=== PATIENT | male | born 1940 | race Caucasian/White ===

== ENCOUNTER 2019-03-25 08:06 | Emergency (ER) | payer MEDICARE, BC ==
[~2019-03-25] VITALS: Ht 175.3 cm; Wt 100.0 kg
[~2019-03-25 08:06] MED LIST: ASPI81TA52 PO; ATOR10TA87 PO; DOCU-28 PO; FAMO-128 PO; HYDR-4383 PO; WALKERFR
[2019-03-25] MEDS ORDERED: HYDROcodone/acetaminophen 5mg/325mg tablet PO ONE (08:25)
[2019-03-25 08:52] LABS: BASOPHILS % (AUTO) 0.5 % (0-1); EOSINOPHILS # (AUTO) 0.1 X10'3 (0-0.9); EOSINOPHILS % (AUTO) 1.1 % (0-6); HEMOGLOBIN 15.2 g/dl (14.0-17.9); LYMPHOCYTES # (AUTO) 0.7 X10'3 (1.1-4.8); LYMPHOCYTES % (AUTO) 10.4 % (21-51); MEAN CORPUSCULAR HEMOGLOBIN 33.9 PG (27.0-31.0); MEAN CORPUSCULAR HGB CONC 34.5 g/dL (33.0-36.5); MEAN CORPUSCULAR VOLUME 98.5 FL (78-98); MONOCYTES # (AUTO) 0.5 X10'3 (0-0.9); MONOCYTES % (AUTO) 8.1 % (2-12); NEUTROPHILS # (AUTO) 5.1 X10'3 (1.8-7.7); NEUTROPHILS % (AUTO) 79.9 % (42-75); PLATELET COUNT 178 X10'3 (140-440); RED BLOOD COUNT 4.47 X10'6 (4.70-6.10); RED CELL DISTRIBUTION WIDTH 13.2 % (11.5-14.5); WHITE BLOOD COUNT 6.4 X10'3 (4.5-11.0)
[2019-03-25 09:14] LABS: PARTIAL THROMBOPLASTIN TIME 27 SECONDS (22-32)
[2019-03-25 09:20] LABS: ALANINE AMINOTRANSFERASE 24 U/L (12-78); ALBUMIN 3.6 G/DL (3.4-5.0); ALKALINE PHOSPHATASE 67 IU/L (46-116); ANION GAP 7 (8-16); ASPARTATE AMINO TRANSFERASE 19 U/L (10-37); BILIRUBIN,TOTAL 0.7 MG/DL (0.1-1.0); BLOOD UREA NITROGEN 15 MG/DL (7-18); BUN/CREATININE RATIO 14.9 (5.4-32.0); CALCIUM 8.7 MG/DL (8.5-10.1); CHLORIDE 99 MMOL/L (99-107); CREATININE 1.01 MG/DL (0.60-1.10); GLUCOSE 118 MG/DL (70-104); SODIUM 134 MMOL/L (135-145); TOTAL PROTEIN 7.2 G/DL (6.4-8.2); eGFR 72 ML/MIN
[2019-03-25 10:22] VITALS: BP 145/60
== END 2019-03-25 10:24 | disposition home or self-care (01) ==
LOC: ER 08:06
DX: S60.512A Abrasion of left hand, initial encounter (principal); S90.811A Abrasion, right foot, initial encounter; S90.812A Abrasion, left foot, initial encounter; R55 Syncope and collapse; M25.552 Pain in left hip; M25.562 Pain in left knee; I25.10 Atherosclerotic heart disease of native coronary artery without angina pectoris; E78.00 Pure hypercholesterolemia, unspecified; Z95.1 Presence of aortocoronary bypass graft; Z79.82 Long term (current) use of aspirin; Z79.899 Other long term (current) drug therapy; V82 Occupant of powered streetcar injured in transport accident; Y93.89 Activity, other specified; Y92.413 State road as the place of occurrence of the external cause; Y99.9 Unspecified external cause status
CPT/HCPCS: 36415; 71045; 73610; 73630; 80053; 84484; 85025; 85610; 85730; 93005; 99284

== ENCOUNTER 2021-03-24 09:09 | Emergency (ER) | payer BC, SELFPAY ==
[~2021-03-24] VITALS: Ht 175.3 cm; Wt 90.9 kg
[2021-03-24 10:34] LABS: MONOCYTES # (AUTO) 1.2 X10'3 (0-0.9)
[2021-03-24 10:40] LABS: BASOPHILS % (AUTO) 0.2 % (0-1); EOSINOPHILS % (AUTO) 0 % (0-6); HEMOGLOBIN 16.7 g/dl (14.0-17.9); LYMPHOCYTES # (AUTO) 0.5 X10'3 (1.1-4.8); LYMPHOCYTES % (AUTO) 6.8 % (21-51); MEAN CORPUSCULAR HEMOGLOBIN 33.2 PG (27.0-31.0); MEAN CORPUSCULAR HGB CONC 34.7 g/dL (33.0-36.5); MEAN CORPUSCULAR VOLUME 95.7 FL (78-98); MEAN PLATELET VOLUME 7.1 FL (7.4-10.4); MONOCYTES % (AUTO) 15.3 % (2-12); NEUTROPHILS # (AUTO) 6.1 X10'3 (1.8-7.7); NEUTROPHILS % (AUTO) 77.7 % (42-75); PLATELET COUNT 200 X10'3 (140-440); RED BLOOD COUNT 5.01 X10'6 (4.70-6.10); RED CELL DISTRIBUTION WIDTH 13.3 % (11.5-14.5); WHITE BLOOD COUNT 7.9 X10'3 (4.5-11.0)
[2021-03-24 10:51] LABS: ALANINE AMINOTRANSFERASE 21 U/L (12-78); ALBUMIN 3.4 G/DL (3.4-5.0); ALBUMIN/GLOBULIN RATIO 0.8 (1.1-1.5); ALKALINE PHOSPHATASE 68 IU/L (46-116); ANION GAP 8 (8-16); ASPARTATE AMINO TRANSFERASE 22 U/L (10-37); BILIRUBIN,TOTAL 0.8 MG/DL (0.1-1.0); BLOOD UREA NITROGEN 24 MG/DL (7-18); CALCIUM 8.7 MG/DL (8.5-10.1); CHLORIDE 95 MMOL/L (99-107); GLUCOSE 116 MG/DL (70-104); LIPASE < 50 U/L (73-393); SODIUM 132 MMOL/L (135-145); TOTAL CARBON DIOXIDE 28.7 MMOL/L (24-32); TOTAL PROTEIN 7.5 G/DL (6.4-8.2); eGFR 72 ML/MIN
[2021-03-24 11:03] LABS: BILIRUBIN,DIRECT 0.2 MG/DL (0-0.3); POTASSIUM 4.5 MMOL/L (3.5-5.1)
[2021-03-24] MEDS ORDERED: iohexol 300mg/ml 100ml inj. ONE (12:54)
[2021-03-24] MEDS ORDERED: iohexol 300 MG/1 ML 50ml polymer ONE (12:54)
[2021-03-24 13:45] VITALS: BP 143/74
[2021-03-24 13:46] LABS: ANISOCYTOSIS FEW; PLATELET ESTIMATE NORMAL; TOTAL CELLS COUNTED 100
[2021-03-24 13:47] LABS: SPHEROCYTES FEW
== END 2021-03-24 15:21 | disposition left against medical advice (07) ==
LOC: ER 09:10
DX: R13.10 Dysphagia, unspecified (principal); Z20.822 Contact with and (suspected) exposure to COVID-19; R55 Syncope and collapse; E86.0 Dehydration; R09.89 Other specified symptoms and signs involving the circulatory and respiratory systems; R05.9 Cough, unspecified; I25.10 Atherosclerotic heart disease of native coronary artery without angina pectoris; E78.00 Pure hypercholesterolemia, unspecified; Z98.890 Other specified postprocedural states; Z79.82 Long term (current) use of aspirin; Z79.899 Other long term (current) drug therapy
CPT/HCPCS: 36415; 70491; 71045; 80048; 80076; 83605; 83690; 85007; 85025; 87635; 99285; C9803; Q9967

== ENCOUNTER 2023-06-26 12:02 | Observation (INO) | payer MEDICARE, BC ==
[~2023-06-26] VITALS: Ht 172.7 cm; Wt 97.7 kg
[2023-06-26 12:24] LABS: BASOPHILS # (AUTO) 0.1 X10'3 (0-0.2); BASOPHILS % (AUTO) 1.4 % (0-1); EOSINOPHILS # (AUTO) 1.1 X10'3 (0-0.9); HEMATOCRIT 43.4 % (42.0-52.0); HEMOGLOBIN 14.9 g/dl (14.0-17.9); LYMPHOCYTES # (AUTO) 1.6 X10'3 (1.1-4.8); LYMPHOCYTES % (AUTO) 17.1 % (21-51); MEAN CORPUSCULAR HEMOGLOBIN 33.3 PG (27.0-31.0); MEAN CORPUSCULAR HGB CONC 34.3 g/dL (33.0-36.5); MEAN CORPUSCULAR VOLUME 97.1 FL (78-98); MONOCYTES # (AUTO) 0.9 X10'3 (0-0.9); MONOCYTES % (AUTO) 9.2 % (2-12); NEUTROPHILS # (AUTO) 5.9 X10'3 (1.8-7.7); NEUTROPHILS % (AUTO) 61.3 % (42-75); PLATELET COUNT 273 X10'3 (140-440); RED BLOOD COUNT 4.47 X10'6 (4.70-6.10); RED CELL DISTRIBUTION WIDTH 12.9 % (11.5-14.5); WHITE BLOOD COUNT 9.6 X10'3 (4.5-11.0)
[2023-06-26 12:47] LABS: ALANINE AMINOTRANSFERASE 14 U/L (12-78); ALBUMIN 3.1 G/DL (3.4-5.0); ALBUMIN/GLOBULIN RATIO 0.7 (1.1-1.5); ALKALINE PHOSPHATASE 80 IU/L (46-116); ANION GAP 8 (8-16); ASPARTATE AMINO TRANSFERASE 22 U/L (10-37); BILIRUBIN,TOTAL 0.4 MG/DL (0.1-1.0); BLOOD UREA NITROGEN 17 MG/DL (7-18); BUN/CREATININE RATIO 17.2 (10.0-20.0); CALCIUM 8.8 MG/DL (8.5-10.1); CHLORIDE 98 MMOL/L (99-107); CREATININE 0.99 MG/DL (0.60-1.10); GLUCOSE 99 MG/DL (70-104); POTASSIUM 3.8 MMOL/L (3.5-5.1); SODIUM 133 MMOL/L (135-145); TOTAL PROTEIN 7.7 G/DL (6.4-8.2); eCRCL 58 ML/MIN; eGFR 73 ML/MIN
[2023-06-26 12:48] LABS: PRO BRAIN NATRIURETIC PEPTIDE 487 PG/ML (0-450)
[2023-06-26 13:34] LABS: APTT 35 SECONDS (22-32); INR 1.1 INR; PROTHROMBIN TIME 11.5 SECONDS (9.0-12.0)
[2023-06-26] MEDS ORDERED: CefTRIAXone/D5W-Rocephin 1gm 50 ML IV ONE (18:00)
[2023-06-26] MEDS ORDERED: mag hydrox/Alum hydrox/simeth 30ml oral suspension PO PRN (18:45)
[2023-06-26] MEDS ORDERED: magnesium 4gm in 100ml NS 100 ML IV PRN (18:45)
[2023-06-26] MEDS ORDERED: ondansetron/PF 4mg/2ml inj IV PRN (18:45)
[2023-06-26] MEDS ORDERED: potassium Cl 40MEQ/1/2NS 520ml 520 ML IV PRN (18:45)
[2023-06-26] MEDS ORDERED: acetaminophen 325mg tablet PO PRN (18:45)
[2023-06-26] MEDS ORDERED: docusate sod 100mg capsule PO PRN (18:45)
[2023-06-26] MEDS ORDERED: potassium Cl 20 mEq SR tablet PO PRN ×2 (18:45)
[2023-06-26] MEDS ORDERED: magnesium 2GM in 50ml NS 50 ML IV PRN (18:45)
[2023-06-26] MEDS: carVEDilol 3.125mg tablet PO SCH (19:57)
[2023-06-26] MEDS: K and/or MAG REPLACEMENT MC SCH (20:00)
[2023-06-26] MEDS: heparin, porcine 5000 units/ml vial SQ SCH (22:05)
[2023-06-26 22:16] LABS: BILIRUBIN,URINE NEGATIVE (Neg); CLARITY,URINE CLEAR (Clear); COLOR,URINE YELLOW (Yellow); GLUCOSE, URINE NEGATIVE (Neg); KETONES,URINE NEGATIVE (Neg); LEUKOCYTE ESTERASE ,URINE NEGATIVE (Neg); NITRITES, URINE NEGATIVE (Neg); OCCULT BLOOD,URINE NEGATIVE (Neg); PH,URINE 5.5 (4.8-8.0); PROTEIN,URINE NEGATIVE (Neg); UROBILINOGEN,URINE 0.2 E.U/dL (0.2-1.0)
[2023-06-26 22:51] LABS: UA COLLECTION TYPE CLN CATCH MIDSTREAM
[2023-06-27] VITALS (7 sets, daily range): BP systolic 143–157; BP diastolic 69–79; PULSE 68–78; RESP 12–16; TEMP 97.9–98.1; O2SAT 96–98
[2023-06-27] MEDS ORDERED: NITR0.4T48 (02:25)
[2023-06-27] MEDS ORDERED: AZIT-164 PO (02:25)
[2023-06-27] MEDS ORDERED: CARV3.122 PO (02:25)
[2023-06-27] MEDS ORDERED: TERB250T89 PO (02:25)
[2023-06-27 06:20] LABS: BASOPHILS # (AUTO) 0.1 X10'3 (0-0.2); BASOPHILS % (AUTO) 0.8 % (0-1); EOSINOPHILS # (AUTO) 1.1 X10'3 (0-0.9); EOSINOPHILS % (AUTO) 13.1 % (0-6); HEMATOCRIT 38.3 % (42.0-52.0); HEMOGLOBIN 13.2 g/dl (14.0-17.9); LYMPHOCYTES # (AUTO) 1.3 X10'3 (1.1-4.8); LYMPHOCYTES % (AUTO) 15.7 % (21-51); MEAN CORPUSCULAR HEMOGLOBIN 33.3 PG (27.0-31.0); MEAN CORPUSCULAR HGB CONC 34.5 g/dL (33.0-36.5); MEAN CORPUSCULAR VOLUME 96.6 FL (78-98); MEAN PLATELET VOLUME 7.2 FL (7.4-10.4); MONOCYTES # (AUTO) 0.8 X10'3 (0-0.9); MONOCYTES % (AUTO) 9.4 % (2-12); PLATELET COUNT 229 X10'3 (140-440); RED BLOOD COUNT 3.96 X10'6 (4.70-6.10); RED CELL DISTRIBUTION WIDTH 12.7 % (11.5-14.5); WHITE BLOOD COUNT 8.1 X10'3 (4.5-11.0)
[2023-06-27 06:34] LABS: ALANINE AMINOTRANSFERASE 15 U/L (12-78); ALBUMIN 2.6 G/DL (3.4-5.0); ALBUMIN/GLOBULIN RATIO 0.7 (1.1-1.5); ALKALINE PHOSPHATASE 64 IU/L (46-116); ANION GAP 6 (8-16); ASPARTATE AMINO TRANSFERASE 19 U/L (10-37); BILIRUBIN,TOTAL 0.4 MG/DL (0.1-1.0); BLOOD UREA NITROGEN 15 MG/DL (7-18); CALCIUM 8.1 MG/DL (8.5-10.1); CHLORIDE 104 MMOL/L (99-107); CREATININE 0.88 MG/DL (0.60-1.10); GLUCOSE 95 MG/DL (70-104); POTASSIUM 4.3 MMOL/L (3.5-5.1); SODIUM 136 MMOL/L (135-145); TOTAL CARBON DIOXIDE 26.5 MMOL/L (24-32); TOTAL PROTEIN 6.2 G/DL (6.4-8.2); eCRCL 65 ML/MIN; eGFR 83 ML/MIN
[2023-06-27] MEDS: K and/or MAG REPLACEMENT MC SCH (07:19)
[2023-06-27] MEDS: heparin, porcine 5000 units/ml vial SQ SCH (07:19)
[2023-06-27] MEDS ORDERED: EMPAGLIFLOZIN 10 MG TABLET PO SCH (08:00)
[2023-06-27] MEDS ORDERED: lisinopril 10 MG tablet PO SCH (08:00)
[2023-06-27] MEDS: carVEDilol 3.125mg tablet PO SCH (08:11)
[2023-06-27] MEDS ORDERED: LISI5TAB22 PO (13:14)
[2023-06-27] MEDS ORDERED: FURO20TA4 PO (13:14)
[2023-06-27] MEDS ORDERED: EMPA10TA PO (13:14)
[2023-06-27 13:38] LABS: BFSOURCE PLEURAL FLD
[2023-06-27 13:41] LABS: GLUCOSE,BODY FLUID 102 MG/DL; LDH,BODY FLUID 400 U/L; TOTAL PROTEIN,BODY FLUID 4.1 G/DL
[2023-06-27 13:47] LABS: BF RBC COUNT 20750 /CU MM; BF WBC COUNT 5750 /CU MM (0-1000); BFAPPEAR CLOUDY; BFCOLOR AMBER; BFSOURCE PLEURAL FLD; BFVOLUME 35 ML; LYMPHOCYTES,BODY FLUID 8 %; NEUTROPHILS,BODY FLUID 1 %
[2023-06-27 13:48] LABS: BF MESOTHELIAL CELLS MANY; EOSINOPHILS,BODY FLUID 84 %; MONOCYTES,BODY FLUID 7 %
== END 2023-06-27 15:10 | disposition home or self-care (01) ==
LOC: ER 12:03 → ED HOLD 18:50 → ORTHO 4S 06-27 01:30
PROVIDERS: ADMIT Family Medicine; ATTEND Family Medicine
DX: J90 Pleural effusion, not elsewhere classified (principal); Z20.822 Contact with and (suspected) exposure to COVID-19; I50.20 Unspecified systolic (congestive) heart failure; C84.A0 Cutaneous T-cell lymphoma, unspecified, unspecified site; I25.10 Atherosclerotic heart disease of native coronary artery without angina pectoris; I34.0 Nonrheumatic mitral (valve) insufficiency; E78.5 Hyperlipidemia, unspecified; E78.00 Pure hypercholesterolemia, unspecified; Z79.84 Long term (current) use of oral hypoglycemic drugs; Z95.1 Presence of aortocoronary bypass graft; Z91.148 Patient's other noncompliance with medication regimen for other reason; Z66 Do not resuscitate; Z79.899 Other long term (current) drug therapy
CPT/HCPCS: 32555; 36415; 71045; 80053; 81003; 82945; 83605; 83615; 83735; 83880; 83986; 84145; 84157; 84484; 85025; 85610; 85730; 87040; 87070; 87075; 87081; 87502; 87503; 87811; 89051; 93005; 93306; 96372; 96374; 99285; G0378; J0696; J1644; A6258